=== PATIENT | male | born 1955 | race Caucasian/White ===

== ENCOUNTER 2016-11-16 10:30 | Outpatient (CLI) | payer BC ==
[~2016-11-16] VITALS: Ht 193 cm; Wt 104.3 kg
[2016-11-17] MEDS ORDERED: PANT40TA2 PO (10:17)
== END 2016-11-16 11:25 ==
LOC: PREOP 10:30
PROVIDERS: ATTEND Surgery
DX: Z01.818 Encounter for other preprocedural examination (principal); K21.9 Gastro-esophageal reflux disease without esophagitis

== ENCOUNTER 2016-11-17 08:39 | Day surgery (SDC) | payer BC ==
[~2016-11-17] VITALS: Ht 193 cm; Wt 104.3 kg
--- OUTSIDE RECORDS SUMMARY | 2016-11-17 08:43 | XMS REPORT | Continuity of Care Document ---
Author Author [facility] Organization [facility] Address Unknown Phone Unavailable Care Team Providers Care Composing Machine Operator/Tender Name Role Phone YAMILKA ALDANA MD PCP Insurance Providers Payer Name Policy Number Subscriber Name Relationship [facility] [id number] Robinson Freitas 18 Self / Same As Patient Advance Directives Directive Response Recorded Date/Time Advance Directives No 11/16/16 11:13am Health Care Power of Tar Heat Exchanger Cleaner No 11/16/16 11:13am Organ Donor No 11/16/16 11:13am Resuscitation Status Full Code 11/16/16 11:13am Problems No problem information available. Medications No known medications. Social History Social History Problem Response Recorded Date/Time Alcohol Use Denies Use 11/16/2016 11:13am Recreational Drug Use No 11/16/2016 11:13am Recent Foreign Travel No 11/16/2016 11:12am Recent Infectious Disease Exposure No 11/16/2016 11:12am Sexually Transmitted Disease No 11/16/2016 11:13am HIV/AIDS No 11/16/2016 11:13am Smoking Status Never a Smoker 11/16/2016 11:13am Recent Hopitalizations No 11/16/2016 11:13am Sexually Transmitted Disease No 11/16/2016 11:13am Hx Sexually Transmitted Disorders No 10/15/2008 8:18am Query Response Start Date Stop Date Smoking Status Never a Smoker Hospital Discharge Instructions No hospital discharge instructions. Plan of Care Discharge Date 11/16/16 11:25am Prescriptions See Medication Section Functional Status No functional status results. Allergies, Adverse Reactions, Alerts Allergen Type Severity Reaction Status Last Updated amoxicillin ([id number]) Allergy Unknown Active 11/16/16 Immunizations No immunization records. Vital Signs Acute Vital Signs Vital Response Date/Time Height (Feet) 6 feet 11/16/2016 11:12am Height (Inches) 4.00 inches 11/16/2016 11:12am Height (Calculated Centimeters) 193.237870 cm 11/16/2016 11:12am Weight (Pounds) 230 pounds 11/16/2016 11:12am Weight (Ounces) 0.0 oz 11/16/2016 11:12am Weight (Calculated Grams) 975656.25 gm 11/16/2016 11:12am Weight (Calculated Kilograms) 104.242086 kilograms 11/16/2016 11:12am Calculated BMI 28.0 11/16/2016 11:12am Results No known relevant diagnostic tests, laboratory data and/or discharge summary. Procedures No known history of procedures. Encounters Encounter Location Arrival/Admit Date Discharge/Depart Date Attending Provider Departed Clinic [facility] 11/16/16 10:30am 11/16/16 11: 25am LOS VELA DO
--- OUTSIDE RECORDS SUMMARY | 2016-11-17 08:43 | XMS REPORT | Continuity of Care Document ---
Author Author [facility] Organization [facility] Address Unknown Phone Unavailable Care Team Providers Care Senior Architectural Designer Name Role Phone YAMILKA ALDANA MD PCP Insurance Providers Payer Name Policy Number Subscriber Name Relationship [facility] [id number] Robinson Freitas 18 Self / Same As Patient Advance Directives Directive Response Recorded Date/Time Advance Directives No 11/16/16 11:13am Health Care Power of Scraper Hand No 11/16/16 11:13am Organ Donor No 11/16/16 [...] Type Severity Reaction Status Last Updated amoxicillin ([id number]) Allergy Unknown Active 11/16/16 Immunizations No immunization records. Vital Signs Acute Vital Signs Vital Response Date/Time Height (Feet) 6 feet 11/16/2016 11:12am Height (Inches) 4.00 inches 11/16/2016 11:12am Height (Calculated Centimeters) 193.376135 cm 11/16/2016 11:12am Weight (Pounds) 230 pounds 11/16/2016 11:12am Weight (Ounces) 0.0 oz 11/16/2016 11:12am Weight (Calculated Grams) 808378.25 gm 11/16/2016 11:12am Weight (Calculated Kilograms) 104.464174 kilograms 11/16/2016 11:12am Calculated BMI 28.0 11/16/2016 11:12am Results No known relevant diagnostic tests, laboratory data and/or discharge summary. Procedures No known history of procedures. Encounters Encounter Location Arrival/Admit Date Discharge/Depart Date Attending Provider Departed Clinic [facility] 11/16/16 10:30am 11/16/16 11: 25am LOS VELA DO
[2016-11-17] MEDS ORDERED: NS IV 1000 ML 1,000 ML IV STA (08:50)
--- NOTE | 2016-11-17 08:59 | Progress Note-Pre Operative ---
Pre-Operative Progress Note H&P Reviewed The H&P was reviewed, patient examined and no changes noted. Date H&P Reviewed: Nov 17, 2016 Time H&P Reviewed: 08:59 Pre-Operative Diagnosis: gerd, hiatal hernia LOS VELA DO Nov 17, 2016 8:59 am
[2016-11-17] MEDS ORDERED: HURRICAINE EXT TUBE (BENZOCAINE) XX PRN (09:00)
[2016-11-17 09:16] VITALS: BP 116/79
[2016-11-17] MEDS ORDERED: proPOfol 200 MG/20 ML (DIPRIVAN) VIAL IV ONE (09:30)
[2016-11-17] MEDS ORDERED: fentaNYL INJECTION 100 MCG/2 ML AMP ONE (09:32)
[2016-11-17] MEDS ORDERED: MIDAZOLAM 2 MG/2 ML (VERSED) VIAL ONE (09:32)
[2016-11-17] MEDS ORDERED: HURRICAINE EXT TUBE (BENZOCAINE) ONE (09:52)
[2016-11-17] MEDS ORDERED: PANT40TA2 PO (10:17)
--- NOTE | 2016-11-17 10:18 | Progress Note-Post Operative ---
Post-Operative Progess Note Pre-Operative Diagnosis gerd, hiatal hernia Post-Operative Diagnosis possible duodenitis, gastric polyp, hiatal hernia Post-Op Procedure Note Date of Procedure: Nov 17, 2016 Name of Procedure: egd with cold biopsy duodenum, antrum. hot bx polypectomy gastric polyp Procedure Note/Findings see note Anesthesia Type per hearing aid repairer Estimated blood loss (mL): none Specimen(s) collected duodenum, antrum, gastric polyp LOS VELA DO Nov 17, 2016 10:18 am
--- NOTE | 2016-11-17 10:18 | Discharge Inst-Simple/Standard ---
Discharge Inst-Standard Patient Instructions/Follow Up Plan of Care/Instructions/FU: Follow up in 2-[address] Pond Take medication as directed . Activity as Tolerated: Yes Discharge Diet: No Restrictions WALTER BANG APRN Nov 17, 2016 10:18
[2016-11-17 10:40] VITALS: BP 111/62
[2016-11-17 11:15] VITALS: BP 117/68
[2016-11-17 11:20] VITALS: BP 117/68
--- NOTE | 2016-11-18 10:36 | PROCEDURE REPORT ---
PROCEDURE PHYSICIAN: LOS VELA DATE OF PROCEDURE: 11/17/2016 PREOPERATIVE DIAGNOSIS: 1. GERD. 2. Hiatal hernia. POSTOPERATIVE DIAGNOSIS: Possible duodenitis, gastric polyp, hiatal hernia. PROCEDURE: EGD with cold biopsies of the duodenal, hot biopsy polypectomy. Gastric polyp. SURGEON: Dejah. ANESTHESIA: Per BLEACHER LARD. ESTIMATED BLOOD LOSS: None. COMPLICATIONS: None. INDICATIONS: The patient is a 61-year-old male with reflux. He has no hiatal hernia from previous endoscopy. The patient understands the risks and benefits of the procedure and wishes to proceed with procedure. Consent was signed on the chart. PROCEDURE: The patient was taken endoscopy suite, placed in left lateral recumbent position. Timeout was performed. The scope was then inserted into the mouth, down the esophagus, stomach and into the duodenum without difficulty. There were no polyps, masses, ulcerations within the second part of the duodenum. Within the first part, there was some slight possible erythematous changes or early polyp formation. Biopsy was obtained. The scope was slowly back to the stomach where it was further insufflated. There was a small gastric polyp present which hot biopsy polypectomy was performed. A biopsy of the antrum was also obtained. The scope was retroflexed noting a small to moderate sized hiatal hernia. There were no other polyps, masses or ulcerations. The scope was returned to its normal position and slowly withdrawn back to the distal esophagus, which had normal appearance. There were no polyps, masses, ulcerations. The scope was slowly retracted completely removed noting no other pathology. The patient tolerated the procedure well without any complications and was taken to the recovery room in stable condition. RECOMMENDATIONS: The patient will be placed on Protonix 40 mg daily. We will have him follow-up in 2 to 3 weeks to see how he is doing at that time. Further recommendations pending biopsies. Job ID: [id number] Dictated Date: 11/17/2016 10:21:14 Press Assistant And Feeder Date: 11/18/2016 10:29:09 / hal
== END 2016-11-17 11:20 | disposition home or self-care (01) ==
LOC: ENDO 08:39
PROVIDERS: ATTEND Surgery
DX: K21.9 Gastro-esophageal reflux disease without esophagitis (principal); K44.9 Diaphragmatic hernia without obstruction or gangrene; K31.7 Polyp of stomach and duodenum
CPT/HCPCS: 88305

== ENCOUNTER 2019-01-26 13:03 | Outpatient (CLI) | payer BC, MEDICARE ==
[~2019-01-26 13:03] MED LIST: PANT40TA2 PO
== END 2019-01-26 13:35 | disposition home or self-care (01) ==
LOC: SLEEP 13:03
PROVIDERS: ATTEND Otolaryngology Otolaryngology/Facial Plastic Surgery
DX: G47.33 Obstructive sleep apnea (adult) (pediatric) (principal)